=== PATIENT | male | born 1980 | race Caucasian/White ===

== ENCOUNTER → 2017-12-19 | Outpatient (CLI) | payer OTHER ==
--- NOTE | 2017-12-19 14:28 | PCVCIMAG ---
APPROVED REPORT Imaging Protocol: Rest Tc-99m/Stress Tc-99m 1 day Study performed: 12/19/2017 08:53:18 Indication: Chest pain, Abnormal SE Patient Location: Out-Patient Stress Nurse: Batool Duran RN GA Tech:Manjula Lion [facility] Ht: 6 ft 0 in Wt: 252 lbs BSA: 2.35 m2 HR: 60 bpm BP: 175/104 mmHg BMI: 34.17 Rhythm: SR, NS, T Wave Abn Medical History Medical History: Hyperlipidemia, Diabetes, Current Smoker Medications: Lisinopril, Aspirin, Metformin Allergies: No known drug allergies Pretest Chest Pain Characteristics: No chest pain Exercise History: Physically active Meds Held (24 hrs): Lisinopril Resting Data Rest SPECT myocardial perfusion imaging was performed in supine position 45 minutes following the intravenous injection of 10 mCi of Tc-99m Sestamibi. Time of rest injection: 0830 Date: 12/19/2017 Administration Route: IV Administration Site: Right Hand Exercise Stress At peak stress, the patient was injected intravenously with 33.9mCi of Tc-99m Sestamibi. Time of stress injection: 1000 Date: 12/19/2017 Administration Route: IV Administration Site: Right Hand Patient continued to exercise for 1.00 minute(s). The images were gated to evaluate regional wall motion and calculate left ventricular ejection fraction. Stress Test Details Stress Test: Exercise stress testing was performed using a Momo protocol. HRMax Heart Rate (APMHR): 184 bpm Resting HR: 60 bpmTarget HR (85% APMHR): 156 bpm Max HR Achieved: 173 bpm % of APMHR: 94 Recovery HR: 85 bpm HR response to stress: Normal HR response to stress BP Resting BP: 175/104 mmHg Recovery BP: 180/84 mmHg BP response to stress: Normal blood pressure response to stress. ECG Resting ECG: Sinus Rhythm, nonspecific T Wave Abnormality Stress ECG: Sinus Tachycardia ST Change: Eqivocally ischemic Maximum ST Deviation: 1.0 mm Arrhythmia: APC's, VPC's Recovery ECG: Sinus Rhythm Clinical Reason for Termination: Target reached, knee pain Stress Symptoms: None Exercise duration: 10 min 50 sec Exercise capacity: 13.4 METs Overall Exercise Capacity for Age: Average Scale: Active Angina Score: None Stress ECG Conclusion Bell Treadmill Score is 5.0 which is Low risk. Study Quality Study: Good Study Data Post stress, the left ventricular ejection was 59%.. SSS: 5 SRS: 3 SDS: 3 TID = 1.03. Perfusion There is a small area of moderately reduced uptake in the apical segment of the anterior wall which is seen on the stress images and improves on the resting images. This area thickens and moves normally and is most consistent with ischemia. Wall Motion Normal left ventricular wall motion. Nuclear Conclusion ECG Findings: equivocal Clinical Findings: negative for ischemia Nuclear Findings: positive for ischemia Exercise Capacity: normal Left Ventricular Function: normal This study reveals a partially reversible defect in the apical segment, suggestive for ischemia. There is normal global and segmental LV systolic function.
== END | disposition home or self-care (01) ==
LOC: EDSTATUS 12-18 07:22 → PCVCIMAG 09:15
PROVIDERS: ATTEND Internal Medicine Cardiovascular Disease
DX: R07.9 Chest pain, unspecified (principal); E11.9 Type 2 diabetes mellitus without complications; F17.200 Nicotine dependence, unspecified, uncomplicated
CPT/HCPCS: 78452; 93017; A9500